=== PATIENT | female | born 1950 | race Caucasian/White ===

== ENCOUNTER 2016-06-27 13:50 | Emergency (ER) | payer MEDICARE, BC ==
--- NOTE | ~2016-06-27 | CT71 ---
[facility] A Service of [facility] RADIOLOGY TEXT RESULTS PATIENT: MADHURI SCHMIDT LOCATION: [facility] : 48 UNIT #: [id number] AGE: [address]: Poli Gonzales MD SEX: F ORDER DR: [id number] [facility] [address] [place], [place] [address] [id number] E MR#: [id number] [facility] #: [id number] NAME: MADHURI SCHMIDT. : 1950 SEX: F STUDY DATE/TIME: 06/27/2016 14:41 UNIT: [facility] ROOM: STUDY DESCRIPTION: CT Head Wo Contrast Attending Physician: Poli Gonzales Ordering Physician: Smooth Foss M.D. Primary Care Physician: Ida Suazo M.D. MEDICAL IMAGING REPORT This report is preliminary unless electronic signature is present EXAM CT head 06/27/2016 HISTORY Fall. Negative loss of consciousness. Hit left side of head, happened today. TECHNIQUE CT head performed skull base through vertex without intravenous contrast. This CT exam was performed with one or more of the following radiation dose reduction techniques: automatic exposure control, adjustment of mA and/or kV according to patient size, and iterative reconstruction. FINDINGS Brainstem unremarkable. Cerebellum and cerebral hemispheres show normal edwards matter - white matter differentiation. No hemorrhage. No evidence of acute cortical ischemia. Midline structures nondisplaced. Basal ganglia intact. Ventricles, cisterns and sulci show minimal generalized enlargement consistent with minimal generalized atrophy. There are cavernous carotid and distal vertebral arterial calcifications. No intra or extraaxial mass effect or abnormal intracranial fluid collection. The intraorbital soft tissues appear unremarkable. Mucosal thickening right maxillary sinus. No fracture. No extracranial traumatic soft tissue abnormality suggested. IMPRESSION 1. No acute abnormality in brain. If patient has ongoing neurologic symptoms, consider follow up imaging. 2. No fracture. 3. Mild atrophic change. 4. Cavernous carotid and distal vertebral arterial calcifications. 5. Extensive mucosal thickening in partially visualized right maxillary sinus. [facility] A Service [facility] RADIOLOGY TEXT RESULTS PATIENT: MADHURI SCHMIDT LOCATION: [facility] : 48 UNIT #: [id number] AGE: [address]: Poli Gonzales MD SEX: F ORDER DR: Dictated by... Robert Carrasquillo M.D. THIS IS AN ELECTRONICALLY VERIFIED REPORT Robert Carrasquillo M.D. at 06/27/2016 6:37 PM BRIDGET/gilberto TD: 06/27/2016 17:04 JOB #: [id number] MEDICAL IMAGING REPORT Page 1 of 1 COPY
--- NOTE | ~2016-06-27 | CR253 ---
[facility] A Service of [facility] RADIOLOGY TEXT RESULTS PATIENT: MADHURI SCHMIDT LOCATION: [facility] : 48 UNIT #: [id number] AGE: [address]: Poli Gonzales MD SEX: F ORDER DR: [id number] [facility] [address] [place], [place] [address] [id number] E MR#: [id number] Acc #: [id number] NAME: MADHURI SCHMIDT. : 1950 SEX: F STUDY DATE/TIME: 06/27/2016 13:35 UNIT: [facility] ROOM: STUDY DESCRIPTION: CR Tibia and Fibula 2 Views Rt Attending Physician: Poli Gonzales Ordering Physician: Smooth Foss M.D. Primary Care Physician: Ida Suazo M.D. MEDICAL IMAGING REPORT This report is preliminary unless electronic signature is present EXAM Right tibia-fibula 2 views INDICATIONS Fall today and right leg pain. COMPARISON No comparisons. FINDINGS There is a right knee arthroplasty. Hardware intact. Alignment anatomic. There is no evidence for acute fracture. Vascular calcifications. IMPRESSION No fracture. Dictated by... Yeyo Em M.D. THIS IS AN ELECTRONICALLY VERIFIED REPORT Yeyo Em M.D. at 06/27/2016 4:34 PM ARS/to TD: 06/27/2016 15:56 JOB #: [id number] MEDICAL IMAGING REPORT Page 1 of 1 COPY
--- NOTE | ~2016-06-27 | CR141 ---
[facility] A Service of [facility] & [facility] RADIOLOGY TEXT RESULTS PATIENT: MADHURI SCHMIDT LOCATION: [facility] : 48 UNIT #: [id number] AGE: [address]: Poli Gonzales MD SEX: F ORDER DR: [id number] [facility] [address] [place], [place] [address] [id number] E MR#: [id number] Acc #: [id number] NAME: MADHURI SCHMIDT. : 1950 SEX: F STUDY DATE/TIME: 06/27/2016 13:33 UNIT: [facility] ROOM: STUDY DESCRIPTION: CR Hand Min 3 Views Lt Attending Physician: Theo Gonzales M.D. Ordering Physician: [facility] Primary Care Physician: Ida Suazo M.D. MEDICAL IMAGING REPORT This report is preliminary unless electronic signature is present EXAM Left hand 3 views 06/27/2016 INDICATIONS Left hand pain today after falling. COMPARISON STUDIES No comparisons. FINDINGS Degenerative change involving the first MCP joint. Chondrocalcinosis of the TFCC. No acute fracture. No dislocation. IMPRESSION No acute fracture. Degenerative changes involving the first MCP joint. Dictated by... Yeyo Em M.D. THIS IS AN ELECTRONICALLY VERIFIED REPORT Yeyo Em M.D. at 06/27/2016 4:34 PM AMADEO/violet TD: 06/27/2016 15:47 JOB #: [id number] MEDICAL IMAGING REPORT Page 1 of 1 COPY
[~2016-06-27 13:50] MED LIST: CRESTOR PO; EFFEXOR PO; HCTZ PO; KCL PO; LASIX PO; NORVASC PO; TOPROL XL PO
== END 2016-06-27 16:41 | disposition home or self-care (01) ==
LOC: CED 13:50
DX: S00.83XA Contusion of other part of head, initial encounter (principal); S60.222A Contusion of left hand, initial encounter; S80.11XA Contusion of right lower leg, initial encounter; I10 Essential (primary) hypertension; Z88.2 Allergy status to sulfonamides; W01.0XXA Fall on same level from slipping, tripping and stumbling without subsequent striking against object, initial encounter; Y92.009 Unspecified place in unspecified non-institutional (private) residence as the place of occurrence of the external cause
CPT/HCPCS: 29125; 70450; 73130; 73590; 99284

== ENCOUNTER → 2016-07-05 | Outpatient (CLI) | payer MEDICARE, BC ==
--- NOTE | ~2016-07-05 | CT4 ---
[facility] A Service of [facility] RADIOLOGY TEXT RESULTS PATIENT: MADHURI SCHMIDT LOCATION: [facility] : 48 UNIT #: [id number] AGE: [address]: Ida Suazo MD SEX: F ORDER DR: [id number] [place] [id number] O MR#: [id number] Acc #: [id number] NAME: MADHURI SCHMIDT : 1950 SEX: F STUDY DATE/TIME: 07/05/2016 15:30 UNIT: [facility] ROOM: STUDY DESCRIPTION: CT Abd and Pelv Wo Cont Attending Physician: Ida Suazo M.D. Referring Physician: Ida Suazo M.D. Ordering Physician: Ida Suazo M.D. Primary Care Physician: Ida Suazo M.D. MEDICAL IMAGING REPORT This report is preliminary unless electronic signature is present. EXAM CT abdomen and pelvis, 07/05/2016. PROCEDURE Axial unenhanced CT abdomen and pelvis with multiplanar reformats without contrast. This CT exam was performed with one or more of the following radiation dose reduction techniques: automatic exposure control, adjustment of mA and/or kV according to patient size, and iterative reconstruction. COMPARISON None HISTORY Right upper quadrant pain since fall last Monday. FINDINGS The lung bases are normal. ABDOMEN: Unenhanced images of the liver, spleen and pancreas are normal. There is a nonobstructing stone in the right renal lower pole, and there is a left renal midpole solid mass versus mildly hyperdense cyst measuring 4.2 x 4.2 cm. The right adrenal gland is normal, and there is a left adrenal mass measuring 2.5 x 1.8 cm on axial images. It is almost certainly a benign adenoma based on density. The aorta is normal in caliber. There is no bowel obstruction, intraabdominal mass, inflammatory change or abnormal fluid collection. The appendix is normal. The bony structures are remarkable only for spinal degenerative change. No acute bony abnormality is seen. [facility] A Service of [facility] RADIOLOGY TEXT RESULTS PATIENT: MADHURI SCHMIDT [facility] [id number] : 48 UNIT #: [id number] AGE: [address]: Ida Suazo MD SEX: F ORDER DR: IMPRESSION No acute abnormality on these unenhanced CT images. There is a left renal midpole solid mass versus mildly hyperdense cyst. It measures 4.2 x 4.2 x 4.1 cm in size. There is a nonobstructing 2-3 mm stone in the right renal lower pole, and there is a left adrenal benign adenoma about 2.5 cm in maximal dimension. There are spinal degenerative changes, but no acute bony abnormality. Dictated by... Randolph Kimble M.D. THIS IS AN ELECTRONICALLY VERIFIED REPORT Randolph Kimble M.D. at 07/11/2016 10:42 AM KAITLIN/shelly TD: 07/05/2016 18:06 JOB #: [id number] MEDICAL IMAGING REPORT Page 1 of 1
[2016-07-06 13:21] LABS: POC - CREATININE 1.14 mg/dL (0.44-1.03)
== END | disposition home or self-care (01) ==
LOC: SRAD 15:08
PROVIDERS: Family Medicine
DX: R10.9 Unspecified abdominal pain (principal); D35.02 Benign neoplasm of left adrenal gland; N20.0 Calculus of kidney; M47.819 Spondylosis without myelopathy or radiculopathy, site unspecified; W01.0XXA Fall on same level from slipping, tripping and stumbling without subsequent striking against object, initial encounter
CPT/HCPCS: 74176; 82565

== ENCOUNTER → 2016-07-13 | Outpatient (CLI) | payer MEDICARE, BC ==
--- NOTE | ~2016-07-13 | US77 ---
[facility] A Service [facility] RADIOLOGY TEXT RESULTS PATIENT: MADHURI SCHMIDT LOCATION: [facility] : 48 UNIT #: [id number] AGE: [address]: Ida Suazo MD SEX: F ORDER DR: [id number] [place] [id number] O MR#: [id number] Acc #: [id number] NAME: MADHURI SCHMIDT. : 1950 SEX: F STUDY DATE/TIME: 07/13/2016 15:27 UNIT: [facility] ROOM: STUDY DESCRIPTION: US Kidney Bilateral Complete Attending Physician: Ida Suazo M.D. Referring Physician: Ida Suazo M.D. Ordering Physician: Ida Suazo M.D. Primary Care Physician: Ida Suazo M.D. MEDICAL IMAGING REPORT This report is preliminary unless electronic signature is present. EXAM Renal ultrasound INDICATION Left renal lesion on previous unenhanced CT. Observation for renal mass versus cyst. PROCEDURE Negro-scale and Doppler imaging kidneys and bladder. COMPARISON CT from 07/05/2016 FINDINGS The right kidney measures 8.5 cm in length. Left kidney measures 9.3 cm. There is a 3.9 cm cyst in the left mid kidney. No hydronephrosis. Unremarkable bladder. IMPRESSION 3.9 cm cyst in the left mid kidney. No appreciable solid renal mass. Dictated by... Theo Nava M.D. THIS IS AN ELECTRONICALLY VERIFIED REPORT Theo Nava M.D. at 07/15/2016 7:01 AM IRINA/lalo TD: 07/14/2016 14:11 JOB #: [id number] MEDICAL IMAGING REPORT [facility] A Service [facility] RADIOLOGY TEXT RESULTS PATIENT: MADHURI SCHMIDT LOCATION: [facility] : 48 UNIT #: [id number] AGE: [address]: Ida Suazo MD SEX: F ORDER DR: Page 1 of 1
--- NOTE | ~2016-07-13 | MR113 ---
[facility] A Service of [facility] RADIOLOGY TEXT RESULTS PATIENT: MADHURI SCHMIDT LOCATION: [facility] : 48 UNIT #: [id number] AGE: [address]: Ida Suazo MD SEX: F ORDER DR: [id number] [address] [address] [id number] O MR#: [id number] Acc #: [id number] NAME: MADHURI SCHMIDT. : 1950 SEX: F STUDY DATE/TIME: 07/13/2016 16:22 UNIT: [facility] ROOM: STUDY DESCRIPTION: MR Lumbar Wo Contrast Attending Physician: Ida Suazo M.D. Referring Physician: Ida Suazo M.D. Ordering Physician: Ida Suazo M.D. Primary Care Physician: Ida Suazo M.D. MRI CENTER REPORT This report is preliminary unless electronic signature is present. EXAM Lumbar spine MRI. HISTORY Low back pain that is nonradiating for the past 3 weeks after falling. TECHNIQUE Multiplanar imaging of the lumbar spine was performed with short and long TR. FINDINGS Exaggerated lumbar lordosis is seen. There is no evidence of spondylolisthesis. In the lower thoracic spine at T10-11 there is bilateral facet hypertrophy. This causes mild canal narrowing. There is posterior disc bulging at T11-12, and T12-L1 with mild central stenosis. Foraminal narrowing is mild on both sides. At L1-L2, the disc is desiccated without bulging. There is moderate bilateral facet hypertrophy with mild central stenosis. At L2-3, the disc is desiccated without bulging and there is mild to moderate bilateral facet disease with mild central stenosis. At L3-4, there is mild concentric disc bulging and moderate facet disease with mild central stenosis. At L4-5, there is mild disc space narrowing. There is moderately severe bilateral facet disease left worse than right with moderate central stenosis. At L5-S1, there is also bilateral facet disease that is severe and worse on the left than on the right. Central stenosis is mild. Foraminal stenosis is moderate bilaterally and worse on the left. STS. [facility] A Service of [facility] & [facility] RADIOLOGY TEXT RESULTS PATIENT: MADHURI SCHMIDT LOCATION: [facility] : 48 UNIT #: [id number] AGE: [address]: Ida Suazo MD SEX: F ORDER DR: There is no evidence of marrow edema to suggest a recent fracture. The conus is normal. No paraspinous masses are seen. A left renal cyst is noted. IMPRESSION Lower thoracic degenerative disc and facet disease with mild canal narrowing. Multilevel lumbar degenerative disc disease which is generally mild and facet arthropathy. The facet disease is moderate at the mid lumbar levels and more advanced at L4-5 and L5-S1. No discrete disc herniation is seen. Foraminal narrowing is most prominent at the L5-S1 levels on both sides. There is no evidence of fracture. Dictated by... Brian Tatum M.D. THIS IS AN ELECTRONICALLY VERIFIED REPORT Brian Tatum M.D. at 07/15/2016 10:03 AM JOSUE/sara TD: 07/14/2016 21:09 JOB #: [id number] MRI CENTER REPORT Page 1 of 1
--- NOTE | ~2016-07-13 | MR176 ---
[facility] A Service of [facility] RADIOLOGY TEXT RESULTS PATIENT: MADHURI SCHMIDT LOCATION: [facility] : 48 UNIT #: [id number] AGE: [address]: Ida Suazo MD SEX: F ORDER DR: [id number] [address] [address] [id number] O MR#: [id number] Acc #: [id number] NAME: MADHURI SCHMIDT. : 1950 SEX: F STUDY DATE/TIME: 07/13/2016 17:02 UNIT: [facility] ROOM: STUDY DESCRIPTION: MR Thoracic Wo Contrast Attending Physician: Ida Suazo M.D. Referring Physician: Ida Suazo M.D. Ordering Physician: Ida Suazo M.D. Primary Care Physician: Ida Suazo M.D. MRI CENTER REPORT This report is preliminary unless electronic signature is present. EXAM Thoracic MRI. HISTORY Mid-back pain after falling 3 weeks ago. TECHNIQUE Multiplanar imaging of the thoracic spine was performed with short and long TR. FINDINGS Alignment is satisfactory. No recent fractures are seen in the thoracic spine. Multiple small thoracic hemangiomas are seen incidentally. Degenerative disc and facet disease is seen to a moderate degree at the ium-ul-kbgjj thoracic levels. This causes mild canal narrowing. The thoracic cord is normal in size and signal. There is no evidence of marrow edema or paraspinous mass. IMPRESSION Moderate multilevel pmd-vu-rhszv thoracic degenerative disc and facet disease with mild canal narrowing. No evidence of recent fracture. The cord is unremarkable. Dictated by... Brian Tatum M.D. THIS IS AN ELECTRONICALLY VERIFIED REPORT Brian Tatum M.D. at 07/15/2016 10:03 AM JOSUE/sara TD: 07/14/2016 21:29 [facility] A Service of [facility] RADIOLOGY TEXT RESULTS PATIENT: MADHURI SCHMIDT LOCATION: [facility] : 48 UNIT #: [id number] AGE: [address]: Ida Suazo MD SEX: F ORDER DR: JOB #: [id number] MRI CENTER REPORT Page 1 of 1
== END | disposition home or self-care (01) ==
LOC: SGUS 15:04 → SMRI 16:00
DX: R10.9 Unspecified abdominal pain (principal); R53.83 Other fatigue; N28.1 Cyst of kidney, acquired; M51.34 Other intervertebral disc degeneration, thoracic region; M51.36 Other intervertebral disc degeneration, lumbar region; M46.96 Unspecified inflammatory spondylopathy, lumbar region; W01.0XXA Fall on same level from slipping, tripping and stumbling without subsequent striking against object, initial encounter
CPT/HCPCS: 72146; 72148; 76775

== ENCOUNTER → 2016-08-25 | Outpatient (CLI) | payer MEDICARE, BC ==
[2016-08-25 09:21] LABS: BASOPHIL# 0.1 X10e3 (0-0.3); BASOPHIL% 1.3 % (0-2.5); EOSINOPHIL# 0.1 X10e3 (0-0.7); EOSINOPHIL% 1.1 % (0.0-7.0); HEMATOCRIT 37.3 % (35.0-45.0); HEMOGLOBIN 12.4 gm/dL (12.0-16.0); LYMPHOCYTE# 2.3 X10e3 (1.0-3.5); LYMPHOCYTE% 29.7 % (17.0-45.0); MEAN CORPUSCULAR HEMOGLOBIN 28.4 PG (28-34); MEAN CORPUSCULAR HGB CONC 33.4 g/dL (30-36); MEAN PLATELET VOLUME 8.5 FL (6.5-11.5); MONOCYTE# 0.5 X10e3 (0-1.0); NEUTROPHIL# 4.7 X10e3 (1.5-7.1); NEUTROPHIL% 60.9 % (40-75); PLATELET COUNT 267 X10e3 (140-420); RED BLOOD COUNT 4.38 X10e (3.90-5.30); RED CELL DISTRIBUTION WIDTH 13.6 % (11.0-15.5); WHITE BLOOD COUNT 7.6 X10e3 (4.0-10.5)
[2016-08-25 09:24] LABS: DIFF IND NO
[2016-08-25 09:28] LABS: URINE APPEARANCE CLEAR; URINE BILIRUBIN NEG (NEG); URINE BLOOD NEG (NEG); URINE COLOR YELLOW; URINE GLUCOSE NEG (NORM); URINE KETONE NEG (NEG); URINE LEUKOCYTE ESTERASE NEG (NEG); URINE NITRATE NEG (NEG); URINE PH 5.5 (5-8); URINE PROTEIN NEG (NEG); URINE SPECIFIC GRAVITY 1.015 (1.003-1.035); URINE UROBILINOGEN 0.2 MG/DL (NORM)
[2016-08-25 09:30] LABS: MICRO INDICATED? NO
[2016-08-25 09:43] LABS: BUN/CREATININE RATIO 17.27; CREATININE SERUM 1.1 mg/dL (0.6-1.4); GLOM FILT RATE Estimated 51.6 mL/min (>60)
== END | disposition home or self-care (01) ==
LOC: SLAB 08:53
PROVIDERS: Internal Medicine Nephrology
DX: N18.9 Chronic kidney disease, unspecified (principal)
CPT/HCPCS: 36415; 80048; 81003; 85025

== ENCOUNTER → 2016-10-25 | Outpatient (CLI) | payer MEDICARE, BC ==
--- NOTE | ~2016-10-25 | MY11 ---
[facility] A Service of [facility] RADIOLOGY TEXT RESULTS PATIENT: MADHURI SCHMIDT LOCATION: [facility] : 48 UNIT #: [id number] AGE: [address]: Ida Suazo MD SEX: F ORDER DR: [id number] [address] [address] [id number] O MR#: [id number] Acc #: [id number] NAME: MADHURI SCHMIDT : 1950 SEX: F STUDY DATE/TIME: 10/25/2016 10:55 UNIT: [facility] ROOM: STUDY DESCRIPTION: MY Mammogram Screening Dig [place] Attending Physician: Ida Suazo M.D. Referring Physician: Ida Suazo M.D. Ordering Physician: Ida Suazo M.D. Primary Care Physician: Ida Suazo M.D. MEDICAL IMAGING REPORT This report is preliminary unless electronic signature is present. EXAM Bilateral digital screening mammogram with CAD, 10/25/2016. HISTORY 66-year-old female with no personal or family history of breast cancer. No current complaints. COMPARISON Bilateral screening mammogram 10/14/2015, 11/15/2013 and 09/21/2012. FINDINGS CC and MLO views were obtained of each breast, utilizing digital technique, and reviewed an FDA-approved CAD device. Scattered fibroglandular densities are present bilaterally. No new or suspicious nodule, architectural distortion or cluster of microcalcification is seen. Benign vascular calcifications are present bilaterally. IMPRESSION Benign findings. Routine screening mammogram is recommended in 1 year. Patients over the age of 40 are entered into a reminder system with target due date for the next mammogram. A result letter will also be sent to the patient. BIRADS: 2 Benign finding. Dictated by... Yanet Minor M.D. [facility] A Service [facility] RADIOLOGY TEXT RESULTS PATIENT: MADHURI SCHMIDT LOCATION: [facility] : 48 UNIT #: [id number] AGE: [address]: Ida Suazo MD SEX: F ORDER DR: THIS IS AN ELECTRONICALLY VERIFIED REPORT Yanet Minor M.D. at 10/27/2016 8:49 AM Racheal TD: 10/25/2016 15:48 JOB #: [id number] MEDICAL IMAGING REPORT Page 1 of 1
== END | disposition home or self-care (01) ==
LOC: SMAM 10:30
DX: Z12.31 Encounter for screening mammogram for malignant neoplasm of breast (principal)
CPT/HCPCS: G0202

== ENCOUNTER → 2016-10-26 | Outpatient (CLI) | payer MEDICARE, BC ==
--- NOTE | ~2016-10-26 | US37 ---
[facility] A Service of [facility] & [facility] RADIOLOGY TEXT RESULTS PATIENT: MADHURI SCHMIDT LOCATION: [facility] : 48 UNIT #: [id number] AGE: [address]: Ida Suazo MD SEX: F ORDER DR: [id number] [facility] [address] [place], [place] [address] [id number] O MR#: [id number] [facility] #: [id number] NAME: MADHURI SCHMIDT. : 1950 SEX: F STUDY DATE/TIME: 10/26/2016 14:17 UNIT: [facility] ROOM: STUDY DESCRIPTION: US Carotid W/Doppler Bilateral Attending Physician: Ida Suazo M.D. Referring Physician: Ida Suazo M.D. Ordering Physician: Ida Suazo M.D. Primary Care Physician: Ida Suazo M.D. MEDICAL IMAGING REPORT This report is preliminary unless electronic signature is present EXAM Carotid duplex scan 10/26/2016 HISTORY Carotid bruit. Hypertension. Hyperlipidemia. FINDINGS The right common carotid artery has a small amount of heterogeneous plaque. There is a small amount of heterogeneous plaque in the right carotid bulb which extends up into the proximal internal and external carotid arteries. Peak systolic velocity in the mid-right internal carotid artery is 97 cm/sec with an end-diastolic velocity of 26 cm/sec. The ICA:CCA ratio on the right is 1.53. Peak systolic velocity in the right external carotid artery is 80 cm/sec. The right vertebral artery is patent with antegrade flow. The left common carotid artery has a small amount of heterogeneous plaque. There is heterogeneous plaque in the left carotid bulb, which extends up into the proximal internal and external carotid arteries. Peak systolic velocity in the distal left internal carotid artery is 106 cm/sec with an end-diastolic velocity of 36 cm/sec. The ICA:CCA ratio on the left is 1.6. Peak systolic velocity in the left external carotid artery is 68 cm/sec. The left vertebral artery is patent with antegrade flow. IMPRESSION Small amount of plaque, but no significant stenosis (less than 50%) in the internal carotid and external carotid arteries bilaterally. Patent vertebral arteries bilaterally with antegrade flow. Dictated by... [facility] A Service of [facility] & [facility] RADIOLOGY TEXT RESULTS PATIENT: MADHURI SCHMIDT LOCATION: [facility] #: [id number] : 46 UNIT #: [id number] AGE: [address]: Iad Suazo MD SEX: F ORDER DR: Lázaro Curiel M.D. THIS IS AN ELECTRONICALLY VERIFIED REPORT Lázaro Curiel M.D. at 10/28/2016 7:42 AM SBS/pcl TD: 10/26/2016 22:42 JOB #: [id number] MEDICAL IMAGING REPORT Page 1 of 1 COPY
== END | disposition home or self-care (01) ==
LOC: CECH 12:47
DX: R01.1 Cardiac murmur, unspecified (principal); I10 Essential (primary) hypertension; R53.83 Other fatigue; I65.23 Occlusion and stenosis of bilateral carotid arteries
CPT/HCPCS: 93306; 93880